=== PATIENT | female | born 1970 | race Caucasian/White ===

== ENCOUNTER → 2018-10-12 15:21 | Outpatient (CLI) | payer OTHER, SELFPAY ==
--- NOTE | 2018-10-12 | DI.RAD.S_ITS ---
PROCEDURE: XR HIP W PEL IF DONE LT 2V INDICATIONS: LEFT HIP PAIN TECHNIQUE: AP pelvis with lateral view(s) of the left hip(s). COMPARISON: None. FINDINGS: Bones: Mild symmetric appearing superior joint space narrowing and subchondral sclerosis in bilateral hip joints are seen. No evidence of avascular necrosis. No fractures or dislocations. Pelvic ring appears intact. No suspicious bony lesions. Soft tissues: The visualized bowel gas pattern is normal. No suspicious soft tissue calcifications. IMPRESSION: Very mild symmetric appearing bilateral hip joint osteoarthritis. Dictated by: Montez Guerrero M.D. on 10/12/2018 at 15:57 Approved by: Montez Guerrero M.D. on 10/12/2018 at 15:58
== END ==
PROVIDERS: Family Provider Family Medicine; PCP Family Medicine; Visit Provider Family Medicine
DX: M25.552 Pain in left hip (principal); M16.0 Bilateral primary osteoarthritis of hip
CPT/HCPCS: 73502

== ENCOUNTER → 2020-03-12 12:11 | Outpatient (CLI) | payer OTHER, SELFPAY ==
--- NOTE | 2020-03-12 | DI.MRI.S_ITS ---
PROCEDURE: MR HIP LT WO CON INDICATIONS: Pain in left hip TECHNIQUE: Noncontrast coronal T1 spin echo and STIR through the bony pelvis. Coronal and axial T2 fast spin echo with fat saturation, sagittal T1 spin echo, and oblique axial T2 fast spin echo with fat saturation through the hip. COMPARISON: None. FINDINGS: Image quality: Excellent. Bones and joints: Moderate left hip joint osteoarthritic changes are seen with superior joint space narrowing, extensive subchondral sclerosis and marginal osteophyte formation. Mild right hip joint osteophytic changes also noted. No intraosseous lesions or fractures. No avascular necrosis of the femoral heads. The visualized lower lumbar spine appears normally aligned. Tendons and ligaments: The gluteus medius and minimus tendinosis at their insertion on greater trochanter is seen, without associated muscle atrophy. The nearby proximal iliotibial band also appears intact. The iliopsoas tendon appears intact, without adjacent bursal fluid collections or evidence for impingement syndrome. The origin of the hamstring tendon is intact at the ischial tuberosity, as well as the associated sacrotuberous ligament. The straight and reflected heads of the rectus femoris muscle origin appear intact, as well as the conjoint tendon. The ligamentum teres appears intact where visualized. Labrum and cartilage: There is suggestion of extensive left hip labral tear in the absence of intra-articular contrast. Near-complete loss of superior articulating cartilage in the femoral head is seen. The alpha angle of the femur is within normal limits at less than 55 degrees. Soft tissues: Visualized muscles demonstrate normal bulk and internal signal. Quadratus femoris muscle demonstrates no internal edema to suggest ischiofemoral impingement. The proximal sciatic neurovascular bundle appears normal adjacent to the hamstring tendons. No free pelvic fluid. Bladder wall thickness is normal. Genitourinary structures and bowel loops appear normal where visualized. There is suggestion of bilateral ovarian cysts measures up to 3.2 x 4.3 cm in size in right ovary and up to 1.6 x 2.4 cm in size in left ovary. IMPRESSION: 1. Moderate left hip joint osteoarthritis and mild left hip joint osteoarthritis. No fracture or dislocation. No evidence of avascular necrosis of femoral head. 2. Mild distal left gluteus medius and minimus tendinosis at their insertions on greater trochanter. 3. Suggestion of extensive left hip labral tear. 4. Bilateral ovarian cyst as above. Dictated by: Montez Guerrero M.D. on 03/12/2020 at 16:15 Approved by: Montez Guerrero M.D. on 03/12/2020 at 16:22
== END ==
LOC: MRI 12:13
PROVIDERS: Family Provider Family Medicine; PCP Family Medicine; Referring Provider Family Medicine; Visit Provider Family Medicine
DX: M25.552 Pain in left hip (principal); M16.12 Unilateral primary osteoarthritis, left hip
CPT/HCPCS: 73721

== ENCOUNTER → 2023-04-21 11:03 | Outpatient (CLI) | payer OTHER, SELFPAY ==
[2023-04-21 12:11] LABS: Cancer Antigen 125 11.6 U/mL (0-35)
[2023-04-24 10:07] LABS: Human Epididymis Prot 4 50.7 pmol/L (0.0-105.2)
== END ==
PROVIDERS: Family Provider Family Medicine; PCP Family Medicine; Referring Provider Specialist; Visit Provider Specialist
DX: N83.209 Unspecified ovarian cyst, unspecified side (principal)
CPT/HCPCS: 36415; 86304; 86305

== ENCOUNTER 2023-05-19 13:44 | Day surgery (SDC) | payer OTHER, SELFPAY ==
[2023-05-19] VITALS (7 sets, daily range): BP systolic 116–135; BP diastolic 69–80; PULSE 75–104; RESP 14–20; TEMP 36.1–36.8; O2SAT 92–99; BMI 29.2
--- NOTE | 2023-05-19 | PATH_ITS ---
[facility] Accession Number: [id number] No. of containers..01 Tissue . 01 Material submitted: . ovary - BILATERAL OVARIES AND FALLOPIAN TUBES . 01 Diagnosis: Left and Right Fallopian Tubes and Ovaries, Bilateral Salpingo- oophorectomy: Unilateral benign mucinous cystadenoma of ovary. - Postmenopausal changes of both ovaries. Fimbriated fallopian tubes with single benign paratubal cyst. . [facility] 05/26/2023 1608 Local . 01 Electronically signed: . Ashley Malhotra MD, Pathologist NPI- [id number] . 01 Gross description: . The specimen is received in formalin labeled with the patient's name, , and bilateral fallopian tubes and ovaries, and consists of two unoriented, fimbriated fallopian tubes with attached ovaries. The first fallopian tube measures 3.5 cm in length by 0.4 cm in diameter, and the attached ovary weighs 3 g and measures 2.7 x 1.9 x 0.9 cm. The second fallopian tube measures 4.8 cm in length by 0.5 cm in diameter while the attached ovary weighs 17 g and measures 4.8 x 3.2 x 3.0 cm. . The first fallopian tube has violaceous, smooth serosa and a cystic structure near the fimbriated end measuring 1.4 cm in greatest dimension and a white plastic circular device possibly consistent with previous tubal ligation measuring 0.4 x 0.3 x 0.3 cm. Sectioning reveals an unremarkable stellate lumen. The first ovary has a hines, cerebriform external surface. Sectioning reveals an unremarkable, physiologic cut surface with no cysts or lesions identified. The second fallopian tube has violaceous smooth serosa with no cystic structures identified and a white plastic circular device consistent with previous tubal ligation measuring 0.4 x 0.4 x 0.3 cm. Sectioning reveals an unremarkable stellate lumen. The second ovary has a hines, wrinkled, deflated external surface that is inked blue. Opening the specimen reveals a disrupted cystic structure possibly filled with hines serous fluid. The internal surface is smooth with no excrescences identified. The andersen average 0.2 cm thick with a small amount of possible normal ovarian parenchyma identified. . Child Care sections are submitted as follows: A1: First fallopian tube to include one-half of bisected fimbriae and cross sections. A2: First ovary. A3: Second fallopian tube to include one-half of bisected fimbriae and cross sections. A4-A5: Child Care second ovary cyst wall. ([id number]) /R 05/25/2023 [facility] Local . 01 Pathologist provided ICD-10: D27.9 . 01 CPT . 250985 Performed at: 01 [facility] [address] [place] [address] [address] [facility], [place], [place] [id number] MD Omega Bergeron MD Phone: [phone]
[2023-05-19] MEDS: LACTATED RINGERS 1,000 ML 100 ML IV (14:33)
--- NOTE | 2023-05-19 15:19 | PM.PREOP ---
Pre-operative Note COVID-19 Criteria for continued procedure: Expected advancement of disease process Interval Note History & Physical reviewed/Exam performed by Physician: Yes Changes to H&P: No
[2023-05-19] MEDS: ONDANSETRON 4 MG/2 ML INJ (15:34)
--- NOTE | 2023-05-19 16:36 | SUR.OPER ---
Supine on padded OR bed, head on pillow, arms secured on padded arm boards at <90 degrees abduction, legs uncrossed, safety belt at thigh, tape over blanket over lower legs.
[2023-05-19] MEDS: BUPIVACAINE 0.5% (PF) 30 ML, EPINEPHrine 0.15 MG INJ (16:45)
--- NOTE | 2023-05-19 17:09 | P.OP_ITS ---
Operative Date/Time/Diagnoses Date of procedure: 05/19/23 Time of procedure: 17:09 Pre-op diagnosis: Bilateral ovarian cysts Post-op diagnosis: same Procedure & Clinicians Procedure: Laparoscopic bilateral salpingo oophorectomy Same procedure as scheduled: Yes Indications: Bilateral ovarian cysts Surgeon: Irene Rush Click Yes if Unassisted: Yes Anesthesia Type: General Operative Notes Findings: Left paratubal cyst, right ovarian benign-appearing cyst. Status post Falope ring tubal ligation. Normal liver edge, normal bowel surface, no internal hernias, no scar tissue. Closure Type: primary Specimen(s): other (Bilateral tubes and ovaries) Estimated Blood Loss (mL): 2 Blood products transfused: none Procedure in detail: Patient was brought to the operating room where she underwent general anesthesia. She was in a supine position. Pulsatile stockings were in place and functional. Warming was with blankets. The area of the incisions were injected with half percent Marcaine with epinephrine. An incision was made in the umbilicus with a scalpel and the Verres needle placed in the abdomen. Confirmation of correct placement of the needle was performed by withdrawing on the syringe and then allowing fluid to fall freely through the needle. The abdomen was insufflated to 3 L of CO2. A 5 mm trocar was placed under direct visualization. 2 other 5 mm trochars were placed in the right and left lower quadrant under direct visualization after incising the skin. There did not appear to be any damage with placement of the trocars. The right fallopian tube was grasped and the infundibulopelvic ligament was cauterized and cut with the power seal. Sequential bites were taken along the broad ligament hugging the ovary. The utero-ovarian ligament was cauterized and cut. The tubal remnant was cauterized and removed with the specimen. Same procedure was performed on the left side. A 12 mm port was placed suprapubically after injecting the skin. An Endo-Catch bag was placed down through the port and the tubes and ovaries were placed in the bag and brought up to the skin. 60 cc of fluid was removed from the right ovarian cyst. Slight amount of morselization allowed removal of both tubes and ovaries contained in the bag without spillage. The fascial layer of the suprapubic site was closed with 0 Vicryl suture. The abdomen was re- insufflated and adequate hemostasis was noted. The CO2 was allowed to escape from the abdomen. The trochars were removed. Skin was closed with 4-0 monocryl. The patient went to recovery room in good condition. Complications: none Post-operative Condition: stable Disposition: same day surgery Plan for aftercare: Home when awake and stable. Additional treatment only if necessary by pathology.
[2023-05-19] MEDS: METOCLOPRAMIDE 10 MG/2 ML INJ IV (17:20)
[2023-05-19] MEDS: hydrOXYzine 50 MG/ML INJ 25 MG IM (17:23)
[2023-05-19] MEDS: OXYCODONE/ACETAMINOPHEN 5/325 TABLET 1 TAB PO (17:24)
== END 2023-05-19 18:01 | disposition home or self-care (01) ==
PROVIDERS: Family Provider Family Medicine; PCP Family Medicine; Referring Provider Specialist; Visit Provider Specialist
PROC: 0UT24ZZ Resection of Bilateral Ovaries, Percutaneous Endoscopic Approach (ICD-10-PCS; CPT 58661; principal; 2023-05-19 15:30)
DX: D27.9 Benign neoplasm of unspecified ovary (principal); N83.8 Other noninflammatory disorders of ovary, fallopian tube and broad ligament
CPT/HCPCS: 58661; J0171; J0330; J1100; J2250; J2405; J2704; J2765; J3010; J3410